=== PATIENT | female | born 1970 | race African-American/Black ===

== ENCOUNTER 2018-03-15 12:14 | Emergency (ER) | payer OTHER ==
[~2018-03-15] VITALS: Ht 180.3 cm; Wt 88.9 kg
[2018-03-15 13:31] LABS: ABSOLUTE BASOPHIL COUNT 0 /CUMM (0.0-0.2); ABSOLUTE EOSINOPHIL COUNT 0 /CUMM (0.0-0.7); ABSOLUTE GRANULOCYTE CT 7.8 /CUMM (1.4-6.5); ABSOLUTE LYMPH COUNT 3.6 /CUMM (1.2-3.4); ABSOLUTE MONOCYTE COUNT 0.2 /CUMM (0.10-0.60); BASOPHIL % 0.2 % (0.0-2.0); EOSINOPHIL % 0.2 % (0-5); HEMATOCRIT 39.5 % (37-47); MEAN CORPUSCULAR HGB 32.5 PG (27.0-31.0); MEAN CORPUSCULAR HGB CONC 34.4 G/DL (33.0-37.0); MEAN CORPUSCULAR VOLUME 94.6 FL (81.0-99.0); MEAN PLATELET VOLUME 8.1 FL (7.4-10.4); PLATELET COUNT 259 /CUMM (130-400); RBC DISTRIBUTION WIDTH 13.9 % (11.5-14.5); RED BLOOD CELL CT 4.18 /CUMM (4.20-5.40); WHITE BLOOD CELL COUNT 11.7 /CUMM (4.8-10.8)
--- NOTE | 2018-03-15 13:38 | ED CARDIAC/CP/PALPITATIONS ---
History of Present Illness General Chief Complaint: Chest Pain Stated Complaint: CHEST PAIN AND SOB Source: patient Exam Limitations: no limitations Vital Signs & Intake/Output Vital Signs & Intake/Output Vital Signs Date Time Temp Pulse Resp B/P B/P Pulse O2 O2 Flow FiO2 Mean Ox Delivery Rate 03/15 1644 98.6 68 18 117/63 99 Room Air 03/15 1230 98.1 74 18 117/72 99 Room Air Allergies Coded Allergies: aspirin (Mild, HIVES 03/15/18) Reconcile Medications No Known Home Medications Triage Note: RECEIVED 47 YO FEMALE C/O INTERMITTENT MID STERNAL CHEST PAIN, STARTED LAST NIGHT. PT REPORTS VERY MILD SOB. NO PRESENT CP IN TRIAGE. Triage Nurses Notes Reviewed? yes Onset: Abrupt Duration: day(s): (1-2), better, changing over time, continues in ED Timing: single episode today Quality/Severity: moderate, sharp Location: central Radiation: no radiation Activities at Onset: none Prior Chest Pain/Card Workup: no prior chest pain, no prior cardiac workup Modifying Factors: Worsens With: breathing, movement, palpation. Nitro Today/Relief: no nitro taken today Aspirin Today: no aspirin today LMP (ages 10-50): unknown : No Patient currently breastfeeds: No HPI: 47-year-old female past medical history of COPD presents for evaluation of chest pain and shortness of breath. Patient states symptoms started yesterday and have improved. The pain is located in the center of her chest does not radiate. Described as sharp stabbing. The pain is worse with deep inspiration and touching the area. She's never had this pain before. She does report that she has had increased emotional stress recently and thinks this may have some limited with it. The pain does not get worse on exertion. No fever or hemoptysis lower extremity edema. No cardiac history. She is a current smoker. She denies drug use. Currently the pain has gotten much better since it first started without any treatment. Sensation any medicine for this. (Petar Ring) Past History Travel History Traveled to [place] past 21 day No Medical History Any Pertinent Medical History? see below for history Neurological: NONE EENT: NONE Cardiovascular: NONE Respiratory: COPD Gastrointestinal: NONE Hepatic: NONE Renal: NONE Musculoskeletal: NONE Psychiatric: NONE Endocrine: NONE Blood Disorders: NONE Cancer(s): NONE Surgical History Surgical History: non-contributory Psychosocial History What is your primary language Amharic Tobacco Use: Current Daily Use Daily Tobacco Use Amount/Type: => 5 Cigarettes daily Family History Hx Contributory? No (Petar Ring) Review of Systems Review of Systems Constitutional: Reports: no symptoms. EENTM: Reports: no symptoms. Respiratory: Reports: see HPI, short of breath. Cardiovascular: Reports: see HPI, chest pain. GI: Reports: no symptoms. Genitourinary: Reports: no symptoms. Musculoskeletal: Reports: no symptoms. Skin: Reports: no symptoms. Neurological/Psychological: Reports: no symptoms. Hematologic/Endocrine: Reports: no symptoms. Immunologic/Allergic: Reports: no symptoms. All Other Systems: Reviewed and Negative (Petar Ring) Physical Exam Physical Exam General Appearance: well developed/nourished, no apparent distress, alert, awake Head: atraumatic, normal appearance Eyes: Bilateral: normal appearance, PERRL, EOMI. Ears, Nose, Throat: normal pharynx, normal ENT inspection, hearing grossly normal Neck: normal inspection, supple, full range of motion Respiratory: normal breath sounds, no respiratory distress, lungs clear, chest wall is tender to palpation over the sternum no bruising swelling or abrasions Cardiovascular: regular rate/rhythm, normal peripheral pulses Peripheral Pulses: 2+ radial (R), 2+ radial (L) Gastrointestinal: soft, non-tender Back: normal inspection, normal range of motion, no vertebral tenderness Extremities: normal inspection, normal range of motion, no edema Neurologic/Psych: no motor/sensory deficits, awake, alert, oriented x 3, normal gait, normal mood/affect Skin: intact, normal color, warm/dry Lymphatic: no anterior cervical brittany Core Measures ACS in differential dx? No CVA/TIA Diagnosis No Sepsis Present: No Sepsis Focused Exam Completed? No (Petar Ring) Progress Differential Diagnosis: AMI, aortic dissection, CHF/pulm edema, costochondritis, musculoskeletal pain, pancreatitis, pericarditis, pneumonia, pneumothorax, PSVT, pulmonary embolism, PUD/GERD, PVCs/PACs, rib fracture, unstable angina Plan of Care: Orders Procedure Date/time Status TROPONIN LEVEL 03/15 1615 Complete EKG 03/15 1615 Active Add-on Test (ER Only) 03/15 1510 Active Add-on Test (ER Only) 03/15 1402 Active HUMAN BETA HCG SCREEN 03/15 1309 Complete D-DIMER 03/15 1309 Complete URINE 03/15 1222 Complete URINALYSIS 03/15 122 Complete TROPONIN LEVEL 03/15 1222 Complete COMPREHENSIVE METABOLIC PANEL 03/15 1222 Complete CBC WITHOUT DIFFERENTIAL 03/15 1222 Complete EKG 03/15 1216 Active Laboratory Tests 03/15/18 1634: Troponin I < 0.01 03/15/18 1515: Urinalysis LIGHT H, Urine Color YEL, Urine Clarity CLEAR, Urine pH 6.0, Ur Specific [place] >= 1.030, Urine Protein TRACE H, Urine Ketones >=80, Urine Nitrite NEG, Urine Bilirubin NEG, Urine Urobilinogen 1.0, Ur Leukocyte Esterase NEG, Ur Microscopic SEDIMENT EXAMINED, Urine RBC 5-10 H, Urine WBC 1-3 H, Ur Epithelial Cells MOD H, Urine Bacteria MANY H, Urine Hemoglobin SMALL H, Urine Glucose NEG, Urine Test NEGATIVE 03/15/18 1309: Anion Gap 10, Estimated GFR > 60, BUN/Creatinine Ratio 11.7, Glucose 96, Calcium 9.7, Total Bilirubin 0.8, AST 16, ALT 22, Alkaline Phosphatase 72, Troponin I < 0.01, Total Protein 7.5, Albumin 4.3, Globulin 3.2, Albumin/Globulin Ratio 1.3, Total Beta HCG NEGATIVE, D-Dimer High Sensitivty < 200, CBC w Diff MAN DIFF ORDERED, RBC 4.18 L, MCV 94.6, MCH 32.5 H, MCHC 34.4, RDW 13.9, MPV 8.1, Gran % 67.0, Lymphocytes % 30.5, Monocytes % 2.1, Eosinophils % 0.2, Basophils % 0.2, Absolute Granulocytes 7.8 H, Absolute Lymphocytes 3.6 H, Absolute Monocytes 0.2, Absolute Eosinophils 0, Absolute Basophils 0, Platelet Estimate ADEQUATE Patient seen and evaluated. She is here with chest pain and shortness of breath that started yesterday. Her vital signs are stable. On initial evaluation her chest wall is significant only tender to palpation. Pain is reproducible with deep inspiration. Lungs are clear she has no severe cardiac history initial EKG is not showing any acute changes. Labs chest x-ray ordered. Patient medicated with Tylenol. Patient reports near complete resolution of her pain after Tylenol. Troponin is negative d-dimer is negative. Chest x-ray is clear. Suspect this may be chest wall pain but due to patient's history of smoking a repeat EKG and troponin will be obtained to rule out acute coronary syndrome. Repeat EKG is not showing any acute changes. Troponin is still PENDING patient is asking to leave. States that she needs to leave to get to her house immediately. Advised patient that if the troponin is positive means that she'll need to stay in the hospital and has been damaged her heart. Patient understands that she stills wants to leave. She understands the risk is alert and oriented 3. Patient was discharged before troponin was back. She will be called if the troponin is positive and asked to return. Advised her to follow- up with her primary care doctor to review all results of today's visit discussed with him precautions patient agrees. Repeat troponin is negative. Case discussed with Dr. Madera he agrees. Diagnostic Imaging: Viewed by Me: Radiology Read. Discussed w/RAD: Radiology Read. Radiology Impression: PATIENT: JESSICA WINCHESTRE PRESENT AGE: 47 PATIENT ACCOUNT NO: [id number] : 72 LOCATION: [facility] ORDERING PHYSICIAN: Petar MEJIA SERVICE DATE: 03/15/18 EXAM TYPE: RAD - XRY- CHEST XRAY, TWO VIEWS EXAMINATION: CHEST 2 VIEWS CLINICAL INFORMATION: Chest pain, shortness of breath. COMPARISON: None. TECHNIQUE: PA and lateral views of the chest were obtained. FINDINGS: The cardiac silhouette is not enlarged. The mediastinal and hilar contours are unremarkable. There are neither pleural effusions nor pneumothoraces. There are no consolidations. The osseous structures are unremarkable. IMPRESSION: No evidence for acute disease. DICTATED BY: Jarred Giles MD DATE/TIME DICTATED:03/15/181552 [employer] HELPER: JOANA DATE/TIME TRANSCRIBED:03/15/181552 Initial ED EKG: normal sinus rhythm, no ST T wave changes, LEFT ATRIAL ABN Repeat EKG: unchanged (Petar Ring) Departure Departure Disposition: HOME OR SELF CARE Condition: Stable Clinical Impression Primary Impression: Chest wall pain Referrals: Kit Burt MD (PCP/Family) Additional Instructions: You are leaving before evaluation is complete. It is recommended YOU stay until YOUr blood work is back. Make a follow-up with YOUr primary care doctor to review all results of today's visit return to the emergency department any time with any concerns. Departure Forms: Customer Survey General Discharge Information Prescriptions: Current Visit Scripts No Known Home Medications (Petar Ring) PA/SENIOR CONSUMER INSIGHTS CONSULTANT Co-Sign Statement Statement: ED Attending supervision documentation- [] I saw and evaluated the patient. I have also reviewed all the pertinent lab results and diagnostic results. I agree with the findings and the plan of care as documented in the PA's/SENIOR CONSUMER INSIGHTS CONSULTANT's documentation. [X] I have reviewed the ED Record and agree with the PA's/SENIOR CONSUMER INSIGHTS CONSULTANT's documentation. [] Additions or exceptions (if any) to the PAs/SENIOR CONSUMER INSIGHTS CONSULTANT's note and plan are summarized below: [] (Santy BENAVIDES,Abdirahman Kennedy) Critical Care Note Critical Care Note Critical Care Time: non-applicable (Petar Ring)
--- NOTE | 2018-03-15 15:57 | RADIOLOGY REPORT ---
EXAMINATION: CHEST 2 VIEWS CLINICAL INFORMATION: Chest pain, shortness of breath. COMPARISON: None. TECHNIQUE: PA and lateral views of the chest were obtained. FINDINGS: The cardiac silhouette is not enlarged. The mediastinal and hilar contours are unremarkable. There are neither pleural effusions nor pneumothoraces. There are no consolidations. The osseous structures are unremarkable. IMPRESSION: No evidence for acute disease.
[2018-03-15 16:44] VITALS: BP 117/63
== END 2018-03-15 17:26 ==
LOC: ERH 12:14
PROVIDERS: Physician Assistant Medical
DX: R07.89 Other chest pain (principal); R06.02 Shortness of breath
CPT/HCPCS: 71046; 81001; 81025; 93005; 93010